=== PATIENT | male | born 1955 | race Caucasian/White ===

== ENCOUNTER 2025-03-30 12:05 | Emergency (ER) | payer MEDICARE, OTHER, SELFPAY ==
[2025-03-30 12:09] VITALS: BP 125/89
[2025-03-30 12:27] LABS: Hematocrit 45.4 % (39.0-52.0); Hemoglobin 16.4 g/dL (13.0-18.0); Mean Corp Hgb Conc. 36.1 g/dL (33.0-37.0); Mean Corpuscular Volume 83.6 fL (80.0-94.0); Nucleated Red Blood Cells % 0 % (-); Platelet Count 344 10^3/uL (130-400); Red Cell Dist. Width 13.2 % (11.5-14.5)
[2025-03-30 12:51] LABS: ALT (SGPT) 21 U/L (0-50); AST (SGOT) 21 U/L (17-59); Albumin 4.9 g/dl (3.5-5.0); Alkaline Phosphatase 48 U/L (38-126); Blood Urea Nitrogen 15 mg/dl (9-20); Calcium 9.8 mg/dl (8.4-10.2); Carbon Dioxide 24 mmol/L (22-30); Chloride 110 mmol/L (98-107); Glucose 123 mg/dl (70-99); Potassium 4.1 mmol/L (3.5-5.1); Sodium 141 mmol/L (135-145); Total Protein 7.5 g/dl (6.3-8.2); eGFR > 60.00
[2025-03-30 13:02] LABS: Troponin I < 0.012 ng/ml
[2025-03-30 14:02] VITALS: BMI 22.2
[2025-03-30 14:05] VITALS: BP 156/91
--- NOTE | 2025-03-30 14:14 | ED.GENMED ---
History of Present Illness
General
Chief Complaint: Breathing Problem
Source: patient
Exam Limitations: none
Time Seen by Provider: 03/30/25 14:06
Nursing documentation reviewed up to this point in time: agreed with
History of Present Illness
History of Present Illness:
Patient to ED with cmoplaint of SOB. States he first noted difficulty with his breathing after covid infection March 2023. States his breathing issues were mild and he just adjusted to it. Over the past few days his breathing has become much more
difficulty. Notes increase in symptoms at bedtime States last PM he did not sleep much due to SOB. He feels better with standing. Denies fever/chills. Chronic mild cough, no changes. Denies any leg pain or swelling, no history of clots. Denies
any CP/pressure. Brought self to ED for eval. Currently no SOB. Pulse ox 98% RA
Past History
Past History
ED Past Medical History: Hypercholesterolemia
Review of Systems
Review of Systems
Allergies reviewed?: Yes
All Other Systems: ROS reviewed and negative except as documented in HPI and ROS
Constitutional: Reports no symptoms
EENT: Reports no symptoms
Respiratory: Reports trouble breathing
Cardiac: Reports no symptoms
ABD/GI: Reports no symptoms
: Reports no symptoms
Musculoskeletal: Reports no symptoms
Skin: Reports no symptoms
Neurological: Reports no symptoms
Psychiatric: Reports no symptoms
Phy Exam
General Physical Exam
General Presentation: well appearing and no apparent distress
General age: appears stated age
General Skin: warm and dry
General Habitus: normal
Cardiovascular Exam
Cardiovascular Exam: regular rate/rhythm and no edema
Pulmonary Exam
Pulmonary Exam: lungs clear, no respiratory distress, no rales, chest non tender, no crackles, no rhonchi, no stridor and no wheezing
Gastrointestinal Exam
Gastrointestinal Exam: normal bowel sounds, non tender, soft, no organomegaly, no pulsatile mass and non distended
Genitourinary Exam Male
Exam Male: other (Kidney stone last week, resolved)
Neurological Exam
Neurological Exam: alert and oriented x3
Musculoskeletal Exam
Musculoskeletal Exam: full ROM and neuro vasc intact
Skin Exam
Skin Exam: normal color, warm/dry and no rash
Psychiatric Exam
Psychiatric Exam: normal mood/affect
Scores
Heart Failure Risk
Heart Failure Risk Score: Not Applicable
Course
Orders/Labs/Results
Orders:
Orders
03/30/25 12:06
Electrocardiogram (*1) Urgent
Reason for Study: Shortness of Breath
03/30/25 12:07
EKG- Treatment ONCE
03/30/25 12:13
Chest [CR Chest - 2 Views ] Urgent
Comment:
Reason For Exam: SOB
03/30/25 12:21
Complete Blood Count/With Diff Urgent
Comprehensive Metabolic Panel Urgent
Troponin I Urgent
03/30/25 14:47
D-Dimer Urgent
Abnormal Lab Results
03/30/25 03/30/25
12:21 15:24
Chloride 110 H mmol/L
(98-107)
Creatinine 0.5 L mg/dL
(0.7-1.3)
Glucose 123 H mg/dl
(70-99)
POC Glucose 103 H mg/dl
(70-99)
03/30/25 12:21
03/30/25 12:21
Vital Signs
Initial and Last Documented VS:
Initial Vital Signs
Temp Pulse Resp BP Pulse Ox
98.4 F 100 18 125/89 98
03/30/25 12:09 03/30/25 12:09 03/30/25 12:09 03/30/25 12:09 03/30/25 12:09
Last Documented Vital Signs
Temp Pulse Resp BP Pulse Ox
98.1 F 86 18 139/80 93
03/30/25 15:20 03/30/25 16:10 03/30/25 16:10 03/30/25 16:10 03/30/25 16:10
*Radiology
Radiology exam reviewed: radiology read reviewed
*Pulse Oximetry
SaO2: 97
Oxygen Mode of Delivery: Room air
Patient hypoxic: no
*Critical Care Note
Total Time (30-74mins, 75-104mins- exclusive of procedures): Not Applicable
ED Attending Note
-
Portions of this chart may have been created with voice recognition software.� Occasional wrong word or��sound alike� substitutions may have occurred due to the inherent limitations of voice recognition software.
Discharge Plan
Departure
Patient Disposition: Home (Routine Discharge)
Date of Disposition: 03/30/25
Time of Disposition: 15:40
Patient with high blood pressure during this ER visit?: No
Condition: Good
Covid-19: Not Applicable
Discharge Problem:
Dyspnea
Instructions: Shortness of breath
Prescriptions:
New
guaifenesin 200 mg tablet
200 mg PO Q4H PRN (Reason: Congestion) Qty: 20 0RF
triamcinolone acetonide [Nasacort] 55 mcg aerosol,spray
2 spray intranasal DAILY Qty: 16.9 0RF
Referrals:
Geovanny Melendez MD [Family Provider, Internal Medicine] - Tomorrow
Interventions
Interventions:
*Risk Screen - Suicide Last Done: 03/30/25 12:09
*General Assessment Last Done: 03/30/25 12:09
*Neglect/Abuse Screening Last Done: 03/30/25 12:09
*ED- Fall Risk Assessment Last Done: 03/30/25 15:21
*ED COVID-19 Vaccine History Last Done: 03/30/25 15:21
*Nursing Disposition Last Done: 03/30/25 16:12
ED- Cardiac Assessment Last Done: 03/30/25 14:11
ED- Pulmonary Assessment Last Done: 03/30/25 14:11
Discharge Date and Time
Discharge Date/Time: 03/30/25 16:13
Print Language: CONGOLESE
[2025-03-30 15:20] VITALS: BP 137/82
[2025-03-30 15:23] LABS: D-Dimer < 0.27 ug/mlFEU (0.00-0.50)
[2025-03-30 15:26] LABS: Glucose - Point of Care 103 mg/dl (70-99)
[2025-03-30 16:10] VITALS: BP 139/80
== END 2025-03-30 16:13 | disposition home or self-care (01) ==
LOC: EMR 12:05
PROVIDERS: Nurse Practitioner; EMERGENCY PHYSICIAN Emergency Medicine; FAMILY PHYSICIAN Internal Medicine
DX: R06.00 Dyspnea, unspecified (principal); E78.00 Pure hypercholesterolemia, unspecified
CPT/HCPCS: 99283; 71046; 80053; 82962; 84484; 85025; 85379; 93005